=== PATIENT | male | born 2000 ===

== ENCOUNTER 2020-10-06 20:13 | Emergency (ER) | payer SELFPAY ==
[~2020-10-06] VITALS: Ht 185.4 cm; Wt 99.8 kg
[2020-10-06 20:17] VITALS: BP 143/74; Ht 185.4 cm; Wt 99.8 kg
[2020-10-06] MEDS ORDERED: CLEOCIN HCL300 MG PO (23:02)
[2020-10-06] MEDS ORDERED: HYDROCODON-ACE1 EAC7 PO (23:02)
== END 2020-10-07 02:35 | disposition home or self-care (01) ==
LOC: D.ER 20:13
DX: L60.0 Ingrowing nail (principal)